=== PATIENT | male | born 1960 | race Caucasian/White ===

== ENCOUNTER 2024-09-22 10:10 | Outpatient (RCR) | payer MEDICARE, SELFPAY | END 2024-09-29 10:40 | disposition home or self-care (01) | PROVIDERS: PCP Surgery; Visit Provider Surgery | DX: F03.B18 Unspecified dementia, moderate, with other behavioral disturbance (principal); Z51.89 Encounter for other specified aftercare | CPT/HCPCS: 97166; 97535 ==